=== PATIENT | female | born 1995 | race Hispanic/Latino ===

== ENCOUNTER 2018-08-21 21:06 | Emergency (ER) | payer OTHER ==
[~2018-08-21] VITALS: Ht 165.1 cm; Wt 85.7 kg
[2018-08-21 21:41] LABS: BASO # 0.1 10^3/uL (0.0-0.2); BASO % 0.3 % (0.0-1.0); EOS # 0.1 10^3/uL (0.0-0.50); EOS % 0.7 % (0.0-3.0); HEMATOCRIT 39.9 % (36.0-47.0); HEMOGLOBIN 14.5 g/dl (12.0-15.5); LYMPH # 1.7 10^3/uL (1.5-6.5); LYMPH % 10.7 % (24.0-44.0); MEAN CORPUSCULAR HGB CONC 36.3 g/dl (32.0-36.5); MEAN CORPUSCULAR VOLUME 82.6 fl (80.0-96.0); MONO # 1.2 10^3/uL (0.0-0.8); MONO % 7.6 % (0.0-5.0); NEUTROPHILS # 12.5 10^3/uL (1.8-7.7); NEUTROPHILS % 80.4 % (36.0-66.0); PLATELET COUNT, AUTOMATED 443 10^3/uL (150-450); RED BLOOD COUNT 4.83 10^6/uL (4.00-5.40); WHITE BLOOD COUNT 15.6 10^3/uL (4.0-10.0)
[2018-08-21 21:59] LABS: ALBUMIN 3.9 GM/DL (3.2-5.2); ALT/SGPT 45 U/L (12-78); BILIRUBIN,DIRECT 0.2 MG/DL (0.0-0.2); BILIRUBIN,TOTAL 0.8 MG/DL (0.2-1.0); BLOOD UREA NITROGEN 15 MG/DL (7-18); CALCIUM LEVEL 8.5 MG/DL (8.5-10.1); CARBON DIOXIDE LEVEL 27 MEQ/L (21-32); CHLORIDE LEVEL 103 MEQ/L (98-107); CREATININE FOR GFR 0.84 MG/DL (0.55-1.30); GLOMERULAR FILTRATION RATE > 60.0 (>60); GLUCOSE, FASTING 90 MG/DL (70-100); LIPASE 122 U/L (73-393); POTASSIUM SERUM 3.6 MEQ/L (3.5-5.1); SODIUM LEVEL 138 MEQ/L (136-145); TOTAL PROTEIN 7.9 GM/DL (6.4-8.2)
[2018-08-21 23:28] LABS: URINE PREG TEST NEGATIVE (NEGATIVE)
[2018-08-21] MEDS ORDERED: ONDANSETRON 4 MG ORAL DISINTEGRATING TAB (Q0162 PER 1MG) PO ONE (23:45)
[2018-08-22] MEDS ORDERED: ONDA4TAB6 PO (00:51)
[2018-08-22 01:00] VITALS: BP 93/50
== END 2018-08-22 01:08 | disposition home or self-care (01) ==
LOC: M ED 21:06
DX: A08.4 Viral intestinal infection, unspecified (principal); Z20.828 Contact with and (suspected) exposure to other viral communicable diseases
CPT/HCPCS: 36415; 80048; 80076; 81025; 83690; 84703; 85025; 99284; Q0162

== ENCOUNTER 2019-02-25 20:16 | Emergency (ER) | payer OTHER ==
[~2019-02-25] VITALS: Ht 162.6 cm; Wt 81.8 kg
[~2019-02-25 20:16] MED LIST: ONDA4TAB6 PO
[2019-02-25] MEDS ORDERED: IBUP200T45 PO (21:42)
[2019-02-25] MEDS: diazePAM 10 MG TAB PO ONE (22:50)
[2019-02-25] MEDS: KETOROLAC 60 MG/2 ML VIAL (J1885) IM ONE (22:50)
[2019-02-25] MEDS: LIDOCAINE 5% (LIDODERM) PATCH TD ONE (22:51)
[2019-02-25 23:24] VITALS: BP 118/62
[2019-02-25] MEDS: PERCOCET 5MG/325MG TAB PO ONE (23:41)
[2019-02-25] MEDS: methylPREDNISolone INJ 125 MG/2 ML VIAL (J2930) IV ONE (23:44)
[2019-02-26] MEDS ORDERED: METH1TAB40 PO (00:26)
[2019-02-26] MEDS ORDERED: NAPR-837 PO (00:26)
[2019-02-26] MEDS ORDERED: LIDO5TD TOP (00:26)
[2019-02-26] MEDS ORDERED: **NOTE PATIENT COMMENT** MISC XX SCH (21:00)
== END 2019-02-26 00:38 | disposition home or self-care (01) ==
LOC: M ED 20:16
DX: M62.830 Muscle spasm of back (principal)
CPT/HCPCS: 81001; 96372; 96374; 99283; J1885; J2930

== ENCOUNTER 2019-08-22 18:06 | Emergency (ER) | payer OTHER ==
[~2019-08-22] VITALS: Ht 165.1 cm; Wt 86.8 kg
[~2019-08-22 18:06] MED LIST changes: +IBUP200T45 PO; +LIDO5TD TOP; +METH1TAB40 PO; +NAPR-837 PO
[2019-08-22 18:07] VITALS: BP 129/59
[2019-08-22 19:12] LABS: BASO % 0.3 % (0.0-1.0); EOS # 0.1 10^3/uL (0.0-0.5); EOS % 0.6 % (0.0-3.0); HEMATOCRIT 34.3 % (36.0-47.0); HEMOGLOBIN 12.5 g/dl (12.0-15.5); LYMPH # 2.9 10^3/uL (1.5-5.0); LYMPH % 23.3 % (24.0-44.0); MEAN CORPUSCULAR HEMOGLOBIN 30.1 pg (27.0-33.0); MEAN CORPUSCULAR HGB CONC 36.4 g/dl (32.0-36.5); MEAN CORPUSCULAR VOLUME 82.7 fl (80.0-96.0); MONO # 0.9 10^3/uL (0.0-0.8); MONO % 7.4 % (0.0-5.0); NEUTROPHILS # 8.6 10^3/uL (1.5-8.5); NEUTROPHILS % 68.1 % (36.0-66.0); PLATELET COUNT, AUTOMATED 446 10^3/uL (150-450); RED BLOOD COUNT 4.15 10^6/uL (4.00-5.40); WHITE BLOOD COUNT 12.6 10^3/uL (4.0-10.0)
[2019-08-22 19:13] LABS: APPEARANCE, URINE HAZY (CLEAR); BACTERIA, URINE AUTO 1+ (NEGATIVE); BILIRUBIN, URINE AUTO NEGATIVE (NEGATIVE); BLOOD, URINE BLOOD 1+ (NEGATIVE); COLOR, URINE YELLOW (YELLOW); GLUCOSE, URINE (UA) AUTO NEGATIVE (NEGATIVE); KETONE, URINE AUTO NEGATIVE (NEGATIVE); LEUKOCYTE ESTERASE, URINE AUTO 3+ (NEGATIVE); NITRITE, URINE AUTO NEGATIVE (NEGATIVE); PROTEIN, URINE AUTO NEGATIVE (NEGATIVE); RBC, URINE AUTO 4 /HPF (0-3); SPECIFIC GRAVITY URINE AUTO 1.013 (1.002-1.035); SQUAMOUS EPITHELIAL CELL UR AU 1 /HPF (0-6); UROBILINOGEN, URINE AUTO 0.2 mg/dL (0.0-2.0); WBC, URINE AUTO 50 /HPF (0-3)
[2019-08-22 19:54] LABS: ALBUMIN 3.9 GM/DL (3.2-5.2); ALT/SGPT 42 U/L (12-78); BILIRUBIN,DIRECT 0.1 MG/DL (0.0-0.2); BILIRUBIN,TOTAL 0.3 MG/DL (0.2-1.0); BLOOD UREA NITROGEN 9 MG/DL (7-18); CALCIUM LEVEL 8.9 MG/DL (8.5-10.1); CARBON DIOXIDE LEVEL 27 MEQ/L (21-32); CHLORIDE LEVEL 106 MEQ/L (98-107); CREATININE FOR GFR 0.82 MG/DL (0.55-1.30); GLOMERULAR FILTRATION RATE > 60.0 (>60); GLUCOSE, FASTING 80 MG/DL (70-100); HCG, SERUM QUANTITATIVE 1822 MIU/ML; LIPASE 135 U/L (73-393); POTASSIUM SERUM 3.6 MEQ/L (3.5-5.1); SODIUM LEVEL 141 MEQ/L (136-145); TOTAL PROTEIN 6.9 GM/DL (6.4-8.2)
[2019-08-22] MEDS ORDERED: ACETAMINOPHEN TAB 650MG DOSE (2X325MG) PO ONE (20:00)
--- NOTE | 2019-08-22 21:45 | REPVR ---
PROCEDURE INFORMATION: Exam: US First Trimester, Transabdominal and US , Transvaginal Exam date and time: 08/22/2019 9:00 PM Age: 24 years old Clinical indication: complicated by abdominal or pelvic pain; Generalized abdominal pain; First trimester; Gestational age or lmp: 5/3; ; Additional info: Abd pain eval for iup TECHNIQUE: Imaging protocol: Real-time transabdominal obstetrical ultrasound of the maternal pelvis and a first trimester , less than 14 weeks 0 days, with image documentation. Transvaginal imaging was used for better evaluation of the fetus and adnexa. COMPARISON: No relevant prior studies available. FINDINGS: GESTATION: Gestation: No intrauterine gestation is visualized. MATERNAL: Uterus: Uterus measures 8.8 x 4.4 x 5.7 cm. Cervix: Unremarkable. Right adnexa: Right ovary measures 3.0 x 1.7 x 1.4 centimetres. Left adnexa: Left ovary measures 5.5 x 3.8 x 2.7 cm. Probable left ovarian corpus luteum cyst measures 2.6 centimetres. Intraperitoneal: No intraperitoneal free fluid. IMPRESSION: No intrauterine gestation is visualized and ectopic is not excluded. Electronically signed by: Lamonte Acosta On 08/22/2019 21:45:16 PM
[2019-08-22 21:57] LABS: CHLAMYDIA DNA AMPLIFICATION POSITIVE (NEGATIVE); GC DNA AMPLIFICATION NEGATIVE (NEGATIVE)
[2019-08-22] MEDS ORDERED: [UNRECOGNIZED DRUG - OTHER] (23:43)
[2019-08-22] MEDS ORDERED: cefTRIAXone SOD 250 MG VIAL (J0696) IM ONE (23:45)
[2019-08-23] MEDS ORDERED: cefTRIAXone SOD 250 MG in D5W MINI-BAG PLUS 50 ML IM ONE ×2
[2019-08-23] MEDS ORDERED: AZITHROMYCIN 250 MG TAB PO ONE
[2019-08-23] MEDS ORDERED: LIDOCAINE 1% SDV 5 ML VIAL DILUENT ONE
--- NOTE | 2019-08-23 02:55 | CR.PDOC ---
General Date of Consultation: Aug 22, 2019 Referring Provider: A Consultation REASON FOR CONSULTATION/CHIEF COMPLAINT: Patient is a LMP 07/15/2019 contacted by ER for r/o ectopic . HISTORY OF PRESENT ILLNESS: Planned with +UPT for 1day. x4days of constant pain in upper abdomen and spine. 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 Now her pain has improved after the ultrasound. No bleeding. No N/V/D. Some milky discharge. No dysuria. No h/o endometriosis. No h/o STDs (until today, diagnosed with chlamydia) or PID. ALLERGIES: Please see below. HOME MEDICATIONS: Please see below. PAST MEDICAL HISTORY: 1. None PAST SURGICAL HISTORY: 1. None FAMILY HISTORY: NC SOCIAL HISTORY: Marital status and/or living arrangements: Children: 1 Employment: Childcare provider Tobacco use:None ETOH: None Illicit drug use: None IV drug use: None Other relevant social factors: None REVIEW OF SYSTEMS: CONSTITUTIONAL: Overall feeling well with the exception of discomfort. HEENT: Normal. CARDIOVASCULAR:. Normal. RESPIRATORY:. Normal. GENITOURINARY: As above. MUSCULOSKELETAL: As above. GASTROINTESTINAL:. Normal. SKIN:. Normal. NEUROLOGICAL:. Normal. PSYCHIATRIC:. Normal. ENDOCRINE:. Normal. HEMATOLOGIC/LYMPHATIC:. Normal. ALLERGIC/IMMUNOLOGIC:. Normal. PHYSICAL EXAMINATION: VITAL SIGNS: Please see below. GENERAL APPEARANCE: Appears comfortable, sitting in talking with family. HEENT:. Mucous membranes moist. RESPIRATORY: Bilaterally clear. CARDIOVASCULAR:. Regular rate and rhythm without murmurs. ABDOMEN: Soft, nontender, With deep palpation, nondistended. EXTREMITIES: No edema and nontender. NEUROLOGICAL: Grossly intact. PSYCHIATRIC:. Normal mood. LABORATORY DATA: Please see below. Of note beta-hCG 1822. Borderline discrim inatory zone ASSESSMENT/PLAN: 1. Early versus ectopic : I discussed with the patient that is unclear at this time where at the location of the is. However, an ectopic can be extremely dangerous and life-threatening. The patient and family voiced understanding, including understanding of symptoms. I recommend that the patient follows up for a 48-hour beta hCG and ultrasound. At that time, she will also follow-up in clinic. 2. Positive chlamydia: I recommend both herself and has been treated with azithromycin 1000 mg by mouth. Patient also be treated with ceftriaxone 250 mg IM. Patient and were informed about this and the causes of transmission and the potential sequelae. Vital Signs/I&O Vital Signs Date Time Temp Pulse Resp B/P (MAP) Pulse Ox O2 Delivery O2 Flow Rate FiO2 08/22/19 19:39 16 08/22/19 18:07 98.7 82 98 Room Air Laboratory Data Labs 24H Laboratory Tests 2 08/22/19 19:01: Immature Granulocyte % (Auto) 0.3, Neutrophils (%) (Auto) 68.1H, Lymphocytes (%) (Auto) 23.3L, Monocytes (%) (Auto) 7.4H, Eosinophils (%) (Auto) 0.6, Basophils (%) (Auto) 0.3, Neutrophils # (Auto) 8.6H, Lymphocytes # (Auto) 2.9, Monocytes # (Auto) 0.9H, Eosinophils # (Auto) 0.1, Basophils # (Auto) 0.0, Nucleated Red Blood Cells % (auto) 0.0, Urine Color YELLOW, Urine Appearance HAZY, Urine pH 7.0, Urine Specific [place] 1.013, Urine Protein NEGATIVE, Urine Glucose (Auto)(UA) NEGATIVE, Urine Ketones (Auto) NEGATIVE, Urine Blood 1+H, Urine Nitrite NEGATIVE, Urine Bilirubin NEGATIVE, Urine Urobilinogen 0.2, Urine Leukocyte Esterase (Auto) 3+H, Urine WBC (Auto) 50H, Urine RBC (Auto) 4H, Urine Hyaline Casts (Auto) 0, Urine Bacteria (Auto) 1+H, Urine Squamous Epithelial Cells 1, Urine Sperm (Auto) , Anion Gap 8, Glomerular Filtration Rate > 60.0, Calcium Level 8.9, Total Bilirubin 0.3, Direct Bilirubin 0.1, Aspartate Amino Transf (AST/SGOT) 18, Alanine Aminotransferase (ALT/SGPT) 42, Alkaline Phosphatase 77, Total Protein 6.9, Albumin 3.9, Albumin/Globulin Ratio 1.30, Lipase 135, Human Chorionic Gonadotropin, Quant 1822 08/22/19 20:14: Chlamydia trachomatis DNA (PASCUAL) POSITIVEH, Neisseria gonorrhoeae DNA (PASCUAL) NEGATIVE CBC/BMP Laboratory Tests 08/22/19 19:01 Microbiology Microbiology 08/22/19 Wet Prep - Final, Complete 08/22/19 Urine Culture, Received Pending Allergies Coded Allergies: No Known Allergies (Unverified , 08/21/18) Marya Marte MD Aug 23, 2019 02:55
== END 2019-08-23 01:15 | disposition home or self-care (01) ==
LOC: M ED 18:06
DX: O20.0 Threatened abortion (principal); O98.311 Other infections with a predominantly sexual mode of transmission complicating pregnancy, first trimester; A74.9 Chlamydial infection, unspecified; Z3A.00 Weeks of gestation of pregnancy not specified
CPT/HCPCS: 76801; 76817; 80048; 80076; 81001; 83690; 84702; 85025; 86850; 86900; 86901; 87086; 87210; 87491; 87591; 93976; 96372; 99282; J0696

== ENCOUNTER → 2019-08-24 | Outpatient (CLI) | payer OTHER ==
[~2019-08-24] MED LIST changes: +[UNRECOGNIZED DRUG - OTHER]
--- NOTE | 2019-08-24 09:13 | REP ---
EMERGENCY FIRST TRIMESTER OBSTETRIC SONOGRAPHY: HISTORY: Threatened miscarriage. FINDINGS: Transabdominal and transvaginal scanning are performed. Uterine dimensions are 8.7 x 4.7 x 5.7 cm. Endometrium contains an intrauterine gestational sac with mean sac size diameter of 6.1 mm. This corresponds with a gestational age estimate of 5 weeks 1 day by mean sac size diameter. No embryonic pole or yolk sac is visible. These findings are nonspecific. No extrauterine abnormality is observed. Normal ovaries are seen. Right ovary measures 3.2 x 2.1 x 3.4 cm. Left ovary dimensions of 4.6 x 2.6 x 2.8 cm. IMPRESSION: Intrauterine gestational sac 5 weeks 1 day size by mean sac size diameter. No embryonic pole or yolk sac seen. Clinical and possibly sonographic followup suggested. Electronically Signed by Cristo Pino MD 08/24/2019 06:31 P
== END ==
LOC: M RAD 07:07
PROVIDERS: ATTEND Obstetrics & Gynecology
DX: O20.0 Threatened abortion (principal); Z3A.01 Less than 8 weeks gestation of pregnancy

== ENCOUNTER → 2019-08-31 | Outpatient (CLI) | payer OTHER ==
--- NOTE | 2019-08-31 10:56 | REP ---
First trimester obstetric ultrasound for dating/viability: There is an intrauterine gestational sac with a pole. The heart rate is 104 beats per minute. The pole crown-rump length is 0.3 cm. This corresponds to a gestational age of 5 weeks 6 days/BISI 04/26/2020. Gestational age by LMP is 6 weeks 5 days/BISI 04/20/2020. There is a small subchorionic hematoma measuring 2.0 x 0.7 x 0.8 cm. There is a hypoechoic 2.6 x 2.1 x 2.0 cm structure in the left ovary, likely a hemorrhagic corpus luteum. There is a normal size yolk sac measuring 3.4 mm. There is no free fluid in the pelvis. Electronically Signed by Patrick Marte MD 08/31/2019 10:46 A
== END ==
LOC: M RAD 09:21
PROVIDERS: ATTEND Obstetrics & Gynecology
DX: Z34.91 Encounter for supervision of normal pregnancy, unspecified, first trimester (principal)

== ENCOUNTER 2020-04-11 12:17 | Inpatient (IN) | payer OTHER ==
[2020-04-11] VITALS (13 sets, daily range): BP systolic 91–115; BP diastolic 51–67
[~2020-04-11] VITALS: Ht 165.1 cm; Wt 92.6 kg
[2020-04-11 13:44] LABS: HEMATOCRIT 35.1 % (36.0-47.0); HEMOGLOBIN 12.7 g/dl (12.0-15.5); MEAN CORPUSCULAR HEMOGLOBIN 30.3 pg (27.0-33.0); MEAN CORPUSCULAR HGB CONC 36.2 g/dl (32.0-36.5); MEAN CORPUSCULAR VOLUME 83.8 fl (80.0-96.0); PLATELET COUNT, AUTOMATED 384 10^3/uL (150-450); RED BLOOD COUNT 4.19 10^6/uL (4.00-5.40); WHITE BLOOD COUNT 10.2 10^3/uL (4.0-10.0)
[2020-04-11] MEDS ORDERED: LACTATED RINGER'S 1000 ML IV STA (14:41)
[2020-04-11] MEDS ORDERED: miSOPROStol 25 MCG 1/4 TAB (S0191) PO ONE (14:45)
--- NOTE | 2020-04-11 15:31 | HPEPDOC ---
Obstetrical History & Physical General Date of Admission Apr 11, 2020 at 12:17 History of Present Illness Myles Montes De Oca is a 25yo at 37+6wks, EDC 26APR2020 by early 1TUS at 5+6wks, who was sent to L&D from clinic for confirmed ROM. Pt reports +FM, denies VB. She does report continued leaking of fluid since 2099 last PM (10APR2020) and intermittent CTX/cramping. 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 36 weeks (denies outbreak for >18 months); SSE in clinic today confirms no lesions ASCUS with HPV+; will need colpo PP Obesity: BMI 30.3; 19lb TWG and 1hr glucose screens WNL B Positive Blood Type GBS Negative OB Hx: VAVD 2011 in [place]; needed fundal pressure and binder with vacuum for delivery; pelvis tested to 7+lbs STAY CUTTER Hx: ASCUS, HPV+; CT+ early , treated and VINCENZO Negative MedHx: Obese SurgicalHx: denies Psych Hx: denies Family Hx: Father - HTN/DM Medication: PNV, Valtrex Allergies: NKDA Chief Complaint: LOF, pre-term Information Provided By: Patient Age: 25 : 2 Term: 1 Pre-term: 0 Abortions: 0 Livin Care Care: Good Care Dating Final EDC: Apr 26, 2020 Final EDC for Daily Update: Apr 26, 2020 Final EDC by: 1st trimester (US) Antepartum Course Height (inches): 65 Pre- weight (lbs.): 182 Admission Weight (lbs.): 203 Change in Weight (lbs.): 19 Past Medical History Past Obstetrical History : Past Obstetrical History: Multigravida STAY CUTTER History: Abnormal Pap, Human papillomavirus(HPV), Herpes simplex virus(HSV) Past Medical History Medical History Obese Surgical History: Denies/None Family History Significant Family History: Diabetes, Hypertension Social History Marital Status: Psychosocial History: No pertinent psych hx * Smoker: non-smoker Alcohol: Denies Drugs: denies Imunizations Tdap status: current Allergies Coded Allergies: No Known Allergies (Unverified , 04/11/20) Physical Examination Physical Examination GENERAL: Alert and oriented times three. ABDOMEN: Gravid and non-tender to touch. FETUS: Is vertex (VTX) by sterile vaginal examination (SVE) HEART RATE: Regular rate and rhythm. LUNGS: Observed nonlabored breathing. EXTREMITIES: No edema. Other physical findings O: VSS, afebrile, normotensive FHR 140s, moderate variability, +accels, no decels noted CTX by TOCO: irregular, spaced after IV hydration VE: 2/50/-3, moderate consistency and posterior EFW: 3500 Vital Signs/I&O Vital Signs Date Time Temp Pulse Resp B/P (MAP) Pulse Ox O2 Delivery O2 Flow Rate FiO2 04/11/20 14:37 97.9 04/11/20 12:39 87 18 101/58 (72) Laboratory Data 24H LABS Laboratory Tests 2 04/11/20 12:35: Serology Scanned Report Hepatitis B Testing 04/11/20 13:36: Nucleated Red Blood Cells % (auto) 0.0, Syphilis Serology NONREACTIVE CBC/BMP Laboratory Tests 04/11/20 13:36 Pertinent Laboratoy Data Blood Type: B+ RBC Antibody Screen: Negative HIV: Negative Hepatitis B: Negative Rapid Plasma Reagin: Nonreactive Rubella: Immune Varicella: Immune Chlamydia/Gonorrhea: Positive (Treated and VINCENZO Negative) Group B Streptococcus: Positive Glucose Tolerance Test: 117 Anatomy Ultrasound Ultrasound Date: Dec 10, 2019 Placenta Location: Anterior Normal Anatomy: Yes Placenta Previa: No Vaginal Examination Cervical Consistency: Medium Cervical Position: Posterior Presentation: Cephalic presentation Tocometer Contractions: Yes Frequency: irregular Assessment/Plan Assessment A: Falguni is a 25yo at 37+6wks being admitted for PROM, not in labor. Category I FHT. GBS Negative, B+ Blood Type. Plan P: Admit to LND, consent for IOL, labor, delivery, recovery and . Risk for operative vaginal delivery or delivery. Pain control options. PIV start, admission labs drawn CEFM x1 hour after cytotec, then intermittent with Category I FHT Start IOL with Buccal cytotec 25mg Regular diet until active labor Monitor maternal/ status Close monitoring for s/sx of chorio; Consult with OB if indicated Anticipate DIVINE JOEL CNM Apr 11, 2020 15:31
[2020-04-11] MEDS ORDERED: miSOPROStol 50 MCG 1/2 TAB (S0191) As Ordered ONE (19:47)
[2020-04-11] MEDS ORDERED: miSOPROStol 50 MCG 1/2 TAB (S0191) PO ONE (20:15)
--- NOTE | 2020-04-11 20:54 | IPNPDOC ---
Text Note Date of Service The patient was seen on 04/11/20. NOTE Dr. Borrego dictating a progress note on Mrs. Monroy. This lady is a 24-year-old 2, para 1, LMP 07/15/2019, EDC 04/20/2020 at 39 and 1 weeks gestation with a history of ruptured membranes since 2100 hours. March 20 07/22/2019 traction's. She was admitted with documentation of spontaneous rupture membranes, no contractions, category 1 strip. She was given measle Postel 25 mg buccally which gave her minimal contractions on reexamination, she was 1 cm posterior, 60% effaced, no fluid was noted. Category 1 strip and the patient had a plan of action, which was agreed upon that she would have 50 mg of Cytotec by mouth and epidural when contractions were intense and possibility of Pitocin and Valerio bulb catheter for augmentation of contractions. He expressed understanding of plan of care. Safe to proceed. VS,Fishbone, I+O VS, Fishbone, I+O Laboratory Tests 04/11/20 13:36 Vital Signs Date Time Temp Pulse Resp B/P (MAP) Pulse Ox O2 Delivery O2 Flow Rate FiO2 04/11/20 19:45 98.3 18 04/11/20 19:45 78 115/65 (82) Finesse Borrego MD Apr 11, 2020 20:39
[2020-04-12] VITALS (25 sets, daily range): BP systolic 90–139; BP diastolic 44–75
[2020-04-12] MEDS ORDERED: LR 1,000 ML IV SCH ×2 (00:34→18:15)
[2020-04-12] MEDS ORDERED: OXYTOCIN 30 UNITS IN 0.9% NaCl 500ML IV BAG (J2590) As Ordered ONE ×2 (00:37→17:51)
[2020-04-12] MEDS ORDERED: OXYTOCIN DRIP 30 UNITS in IV 1 EA IV SCH ×2 (00:45→17:00)
--- NOTE | 2020-04-12 05:19 | IPNPDOC ---
Text Note Date of Service The patient was seen on 04/12/20. NOTE 0530 AM ASSESSMENT RE PROGRESS . CONTRACTIONS MODERATE ON PITOCIN 14 MUNITS . CATEGORY 1 STRIP EXAMINATION CERVIX POSTERIOR 3 CM AFEBRILE SROM OVER 24 HOURS SLOW PROGRESS SAFE TO PROCEED PATIENT DECLINED EPIDURAL REASON IN HER COUNTRY COST TOO MUCH EXPLAINED HERE IT IS COVERED STILL DECLINED . VS,Fishbone, I+O VS, Fishbone, I+O Laboratory Tests 04/11/20 13:36 Vital Signs Date Time Temp Pulse Resp B/P (MAP) Pulse Ox O2 Delivery O2 Flow Rate FiO2 04/12/20 04:19 66 18 102/53 (69) 04/12/20 04:12 97.6 I&O- Last 24 Hours up to 6 AM 04/12/20 05:59 Intake Total 3000 ml Output Total 2000 ml Balance 1000 ml Finesse Borrego MD Apr 12, 2020 05:17
[2020-04-12] MEDS ORDERED: UNASYN 3 GM VIAL As Ordered ONE (15:33)
[2020-04-12] MEDS ORDERED: BICITRA 30ML SOLN UDC As Ordered ONE (15:34)
[2020-04-12] MEDS ORDERED: AMPICILLIN SOD/SULBACTAM SOD 3 GM in D5W MINI-BAG PLUS 100 ML IV ONE (15:45)
[2020-04-12] MEDS ORDERED: MORPHINE PRES-FREE INJ 10 MG/10 ML VIAL (J2274) As Ordered ONE (15:45)
[2020-04-12] MEDS ORDERED: BICITRA 30ML SOLN UDC PO ONE (15:45)
[2020-04-12] MEDS ORDERED: NALOXONE INJ 0.4MG/1ML VIAL (J2310 PER 1MG) IV PRN ×2 (15:51)
[2020-04-12] MEDS ORDERED: METOCLOPRAMIDE INJ 10MG/2ML VIAL (J2765 PER 1) IV PRN ×2 (15:51→18:15)
[2020-04-12] MEDS ORDERED: ONDANSETRON 4MG/2ML VIAL IV PRN ×2 (15:51→18:15)
[2020-04-12] MEDS ORDERED: diphenhydrAMINE 50MG/ML VIAL (J1200) IV PRN (15:51)
[2020-04-12] MEDS ORDERED: NALBUPHINE HCL 10 MG/ML AMP (J2300) IV PRN (15:51)
--- NOTE | 2020-04-12 15:59 | IPNPDOC ---
Obstetrical Progress Note Date of Service Apr 12, 2020 Subjective 3cm/80/-2, unchanged since 2am ( last exam 1200). Pitocin was discontinued secondary to category 2 tracing with tachycardia and late decelerations patient has been counseled regarding her diagnosis and plan to proceed with section secondary to inability to augment labor / arrested dilation Objective Vital Signs Date Time Temp Pulse Resp B/P (MAP) Pulse Ox O2 Delivery O2 Flow Rate FiO2 04/12/20 10:10 68 105/59 (74) 04/12/20 10:01 99.3 04/12/20 06:21 18 Assessment Decelerations: Intermittent Heart Patterns: Tachycardia Heart Rate Tracing: Category II Tocometer Contractions: Yes Frequency: regular Sterile Vaginal Examination Dilation: 3 cm Effacement (%): 80% Station: -2 Postion/Presentation: Cephalic presentation Assessment and Plan Age: 25 : 2 Livin Anticipate: Section (-year-old 2 para 1 at 37 weeks with spontaneous ruptured membranes greater than 24 hours. Patient and thoroughly counseled regards to her diagnosis of breast dilation with inability to augment labor plan is to proceed with section) WILFREDO GUERRA MD. Apr 12, 2020 15:59
--- NOTE | 2020-04-12 15:59 | ROOPDOC ---
[facility] Report Of Operation Report of Operation DATE OF PROCEDURE: 04/12/20 SURGEON: Nancy Harley M.D. CAN CLOSING MACHINE OPERATOR: Heriberto Ruelas D.O. ( essential for the emergency of surgery for tissue retractions, exposure and delivery of ) PROCEDURE: Primary section PREOPERATIVE DIAGNOSIS: 1. Arrest of dilation 2. Inability augment labor 3. Prolonged rupture of membranes POSTOPERATIVE DIAGNOSIS: 1. Arrest of dilation 2. Inability augment labor 3. Prolonged rupture of membranes ANESTHESIA: Spinal ESTIMATED BLOOD LOSS: 500 mL URINE OUTPUT: 100 mL INTRAVENOUS FLUIDS: 1000mL of lactated Ringer's solution PREOPERATIVE ANTIBIOTICS:. 2 g of Unasyn OPERATIVE FINDINGS: Liveborn male , Apgars 9 and 9. Weight 3620 or 8 lbs. 0 oz. SPECIMENS: Cord gases DESCRIPTION OF PROCEDURE: After informed consent was obtained and written consent was reviewed. The patient was brought to the operating room where spinal anesthesia was placed. She was then placed in the supine position with a left lateral tilt. Valerio catheter was placed and to gravity. Patient was then prepped and draped in the normal sterile fashion. A timeout operating room was performed identifying the patient, procedure be performed as well as drug allergies. Anesthesia was tested and deemed to be adequate. Pfannenstiel skin incision was made and this was carried down to the underlying rectus fascia. The fascia was then scored and this incision was extended bilaterally. The fascia was then dissected off the underlying rectus muscle superiorly and inferiorly. The rectus muscles were then in the midline. The peritoneum is then entered. Vesicouterine peritoneum was then tented and excised and a bladder flap was created. Mobius retractor was then placed. Next, a curvilinear incision was then made in the lower uterine segment. Amniotomy was performed, productive, clear fluid. The head was brought to the level of the incision atraumatically and delivered along the shoulders and corpus. The cord was clamped x2. The was brought over to the warmer with a good cry. Placenta was drained and delivered grossly intact. The uterus was cleared of all clots and debris and the uterine incision was then closed using 0 Vicryl in a running locking fashion followed. The abdomen suctioned. Surgical sites reinspected and noted be hemostatic. The retractor was then removed. The anterior peritoneum was then reapproximated with 3-0 Vicryl. The rectus muscles were reapproximated 3-0 Vicryl. The fascia was then closed using 0 Vicryl in a running nonlocking fashion. The subcutaneous tissues was then irrigated and suctioned. Subcutaneous tissue was reapproximated using 3-0 Vicryl. Several subdermal stitch is placed using 3-0 Vicryl and the skin was closed with 4-0 Monocryl and subcuticular fashion. This incision was then cleaned and dried and was dressed. The patient was then taken to recovery in stable condition. All counts were correct. My surgical nurse Dr. Ruelas played in an essential role during the operation. He assisted with tissue identification retraction, delivery of the , as well as wound closure. NANCY HARLEY MD. Apr 12, 2020 15:59
[2020-04-12] MEDS ORDERED: MEASLES,MUMPS,RUBELLA VACCINE INJ (MMR-II) (90707) SC SCH (16:00)
[2020-04-12] MEDS ORDERED: MOM 30ML SUSPENSION UDC PO PRN (16:00)
[2020-04-12] MEDS ORDERED: ONDANSETRON 4 MG ORAL DISINTEGRATING TAB PO PRN (16:00)
[2020-04-12] MEDS ORDERED: PERCOCET 5MG/325MG TAB PO PRN ×2 (16:00→18:15)
[2020-04-12] MEDS ORDERED: RHOGAM 300 MCG (1500 IU) INJ (J2790) IM SCH (16:00)
[2020-04-12] MEDS ORDERED: OXYTOCIN INJ 10 UNITS/ML VIAL (J2590) As Ordered ONE (16:06)
[2020-04-12] MEDS ORDERED: KETOROLAC 60MG 2ML VIAL As Ordered ONE (16:13)
[2020-04-12] MEDS ORDERED: ONDANSETRON 4MG/2ML VIAL As Ordered ONE (16:13)
[2020-04-12] MEDS ORDERED: fentaNYL 100 MCG/2 ML INJECTION (J3010) As Ordered ONE (16:13)
[2020-04-12 16:47] LABS: CORD GAS HCO3 A 25.5 MEQ/L; CORD GAS HCO3 V 23.6 MEQ/L; CORD GAS O2 SAT A 49.7 %; CORD GAS O2 SAT V 68.6 %; CORD GAS PCO2 A 54.9 mmHg; CORD GAS PCO2 V 43.5 mmHg; CORD GAS PH A 7.285 UNITS; CORD GAS PH V 7.353 UNITS; CORD GAS PO2 A 21.7 mmHg; CORD GAS PO2 V 27.3 mmHg; CORD GAS SBC A 21.7 MEQ/L; CORD GAS SBC V 22.1 MEQ/L; CORD GAS TCO2 A 27.2 MEQ/L
[2020-04-12] MEDS: LR 1,000 ML IV SCH (17:26)
[2020-04-12] MEDS ORDERED: fentaNYL 100 MCG/2 ML INJECTION (J3010) IV PRN (18:15)
[2020-04-12] MEDS ORDERED: MEPERIDINE INJ 25 MG/ML VIAL (J2175) IV PRN (18:15)
[2020-04-12] MEDS: DOCUSATE SODIUM 100 MG CAP PO SCH (21:51)
[2020-04-12] MEDS: KETOROLAC 30 MG/ML 1ML VIAL IV SCH (21:51)
[2020-04-13] MEDS: LR 1,000 ML IV SCH ×2 (01:00→09:45)
[2020-04-13 02:00] VITALS: BP 113/54
[2020-04-13] MEDS: KETOROLAC 30 MG/ML 1ML VIAL IV SCH ×2 (03:51→09:45)
[2020-04-13 06:00] VITALS: BP 110/56
[2020-04-13 07:14] LABS: HEMATOCRIT 32.8 % (36.0-47.0); HEMOGLOBIN 11.9 g/dl (12.0-15.5); MEAN CORPUSCULAR HEMOGLOBIN 30.9 pg (27.0-33.0); MEAN CORPUSCULAR HGB CONC 36.3 g/dl (32.0-36.5); MEAN CORPUSCULAR VOLUME 85.2 fl (80.0-96.0); PLATELET COUNT, AUTOMATED 343 10^3/uL (150-450); RED BLOOD COUNT 3.85 10^6/uL (4.00-5.40); WHITE BLOOD COUNT 15.4 10^3/uL (4.0-10.0)
[2020-04-13] MEDS: PRENATAL VITAMINS CHEWABLE TABLET PO SCH (08:19)
[2020-04-13] MEDS: DOCUSATE SODIUM 100 MG CAP PO SCH ×2 (08:19→20:45)
[2020-04-13 10:00] VITALS: BP 100/60
--- NOTE | 2020-04-13 11:22 | IPNPDOC ---
Progress Note Date of Service: Apr 13, 2020 Day#: 1 Progress Note SUBJECT: Doing well without complaints. Ambulating, voiding and pain is well- controlled. Reports minimal lochia. OBJECTIVE: VITAL SIGNS: Within normal limits, afebrile. Alert and oriented times three. Abdomen: Fundus firm at U-2. Incision: dressed Ext: neg calf tenderness. ASSESSMENT: /postoperative day #1 status post delivery. Recovering in stable condition. PLAN: 1. Continue routine /postoperative care 2. Discharge plans for tomorrow VS, I&O, 24H, Fishbone Vital Signs/I&O Vital Signs Date Time Temp Pulse Resp B/P (MAP) Pulse Ox O2 Delivery O2 Flow Rate FiO2 04/13/20 10:00 97.1 68 18 100/60 (73) 98 04/13/20 06:00 Room Air I&O- Last 24 Hours up to 6 AM 04/13/20 06:00 Intake Total 1475 ml Output Total 2050 ml Balance -575 ml Laboratory Data 24H LABS Laboratory Tests 2 04/12/20 16:30: Cord Arterial Blood pH 7.285, Cord Arterial Blood PCO2 54.9, Cord Arterial Blood PO2 21.7, Cord Arterial Blood HCO3 25.5, Cord Arterial Blood Total CO2 27.2, Cord Arterial Blood Base Excess -2.0, Cord Arterial Base Excess (Standard 21.7, Cord Arterial Bld Oxygen Saturation 49.7, Cord Venous Blood pH 7.353, Cord Venous Blood PCO2 43.5, Cord Venous Blood PO2 27.3, Cord Venous Blood HCO3 23.6, Cord Venous Blood Total CO2 25.0, Cord Venous Base Excess (Actual) -2.0, Cord Venous Base Excess (Standard) 22.1, Cord Venous Blood Oxygen Saturation 68.6 04/13/20 07:02: Nucleated Red Blood Cells % (auto) 0.0 CBC/BMP Laboratory Tests 04/13/20 07:02 WILFREDO GUERRA MD. Apr 13, 2020 11:22
[2020-04-13] MEDS: PERCOCET 5MG/325MG TAB PO PRN (12:54)
[2020-04-13] MEDS: IBUPROFEN 800 MG TAB PO SCH (17:46)
[2020-04-13 18:26] VITALS: BP 110/60
[2020-04-13 22:00] VITALS: BP 114/60
[2020-04-14] MEDS: IBUPROFEN 800 MG TAB PO SCH ×2 (01:06→09:57)
[2020-04-14 05:26] VITALS: BP 113/54
[2020-04-14] MEDS: PERCOCET 5MG/325MG TAB PO PRN ×2 (07:38→15:56)
[2020-04-14] MEDS: DOCUSATE SODIUM 100 MG CAP PO SCH (09:56)
[2020-04-14] MEDS: PRENATAL VITAMINS CHEWABLE TABLET PO SCH (09:57)
--- NOTE | 2020-04-14 10:05 | DS.PDOC ---
Discharge Summary General Date of Admission Apr 11, 2020 at 12:17 Date of Discharge 04/14/20 Attending Physician: WILFREDO GUERRA MD. Discharge Summary PROCEDURES PERFORMED DURING STAY: 1. Spinal anesthesia 2. section. ADMITTING DIAGNOSES: 1. Premature rupture of membranes. DISCHARGE DIAGNOSES: 1. Arrest of dilation 2. Inability to augment labor 3. Prolonged rupture of membranes. COMPLICATIONS/CHIEF COMPLAINT: SROM. HISTORY OF PRESENT ILLNESS: 25-year-old 2 para 1 who presented with premature rupture of membranes. Her labor was augmented. She remained ruptured greater than 24 hours. Her cervix was unchanged after several hours at which time augmentation had to be discontinued for tachycardia with repetitive late decelerations and decision was made to proceed with section which was uncomplicated screen blood loss is 500ml. Patient did well postoperatively by postoperative day #2 had met all discharge criteria is discharged home in stable condition. HOSPITAL COURSE: Uncomplicated. DISCHARGE MEDICATIONS: Please see below. ALLERGIES: Please see below. PHYSICAL EXAMINATION ON DISCHARGE: VITAL SIGNS: Please see below. GENERAL: Well-appearing ABDOMINAL EXAMINATION: Soft, appropriately tender, fundus is firm below umbilicus EXTREMITIES: Negative calf tenderness NEUROLOGICAL EXAMINATION: Grossly intact LABORATORY DATA: Please see below. ACTIVITY: As tolerated. DIET: Regular DISCHARGE PLAN: Home DISCHARGE INSTRUCTIONS: 1. Follow-up in 2 weeks for incision check 2. Remain on pelvic rest for 6 weeks 3. Reports severe pain,heavy vaginal bleeding fever or incisional issues 4. Remove dressing in 5-7 days. DISCHARGE CONDITION: Stable. Vital Signs/I&Os Vital Signs Date Time Temp Pulse Resp B/P (MAP) Pulse Ox O2 Delivery O2 Flow Rate FiO2 04/14/20 08:10 18 04/14/20 05:26 98.1 75 113/54 (73) 99 Room Air I&O- Last 24 Hours up to 6 AM 04/14/20 06:00 Output Total 600 ml Balance -600 ml Discharge Medications Scheduled PRN Ibuprofen (Ibuprofen) 800 Mg Tablet, 800 MG PO Q8HP PRN for PAIN Oxycodone/Acetaminophen (Oxycodone-Acetaminophen 5-325) 1 Each Tablet, 1-2 TAB PO Q6H PRN for SEVERE PAIN (PS 8-10) Allergies Coded Allergies: No Known Allergies (Unverified , 04/11/20) WILFREDO GUERRA MD. Apr 14, 2020 10:05
[2020-04-14] MEDS ORDERED: IBUP80TA PO ×2 (10:08→10:32)
[2020-04-14] MEDS ORDERED: PERCOCET PO ×2 (10:34→10:52)
== END 2020-04-14 18:00 | disposition home or self-care (01) | DRG 773 ==
LOC: M LDI 12:17 → M OBS 04-12 18:47
PROVIDERS: ADMIT Registered Nurse Maternal Newborn; ATTEND Registered Nurse Maternal Newborn
PROC: 3E0DXGC Introduction of Other Therapeutic Substance into Mouth and Pharynx, External Approach (ICD-10-PCS; 2020-04-11)
PROC: 3E033VJ Introduction of Other Hormone into Peripheral Vein, Percutaneous Approach (ICD-10-PCS; 2020-04-11)
PROC: 10D00Z1 Extraction of Products of Conception, Low, Open Approach (ICD-10-PCS; principal; 2020-04-12 16:10)
DX: O42.02 Full-term premature rupture of membranes, onset of labor within 24 hours of rupture (principal); Z37.0 Single live birth; Z3A.37 37 weeks gestation of pregnancy; O62.0 Primary inadequate contractions; O76 Abnormality in fetal heart rate and rhythm complicating labor and delivery